=== PATIENT | male | born 1975 | race Two or more races ===

== ENCOUNTER → 2025-08-10 | Outpatient (CLI) | payer MEDICAID, SELFPAY ==
--- NOTE | 2025-08-10 08:26 | XR_ITS ---
Examination: Knee bilateral, 6 views Technique: Knee AP, lateral, oblique each knee total 6 views Date and time of exam: August 10, 2025, 0833 hours INDICATIONS: Bilateral knee pain beginning 2 years ago. FINDINGS: Moderate osteopenia No acute fracture No dislocation No significant arthritic change IMPRESSION: No fractures No significant arthritic change
== END | disposition home or self-care (01) ==
LOC: CDIM 08:09
DX: M25.562 Pain in left knee (principal); M25.561 Pain in right knee
CPT/HCPCS: 73562